=== PATIENT | female | born 1940 | race Caucasian/White ===

== ENCOUNTER 2025-02-26 08:41 | Emergency (ER) | payer MEDICARE, SELFPAY ==
--- OUTSIDE RECORDS SUMMARY | 2025-02-26 08:44 | XMS_ITS | Referral Summary ---
Author Organization [facility] [address] Address [address] [place] [address] Phone Care Team Providers Care Manager Credit Name Role Phone Abdullahi Estes MD Primary Care Provider [phone] Ronnie Bennett MD Unavailable [phone] Steve Beckett MD Unavailable [phone] Maribell Keys DO Unavailable [phone] Demetris Christopher MD Unavailable [phone] David Cox MD Unavailable [phone] Encounters Date Type Department Care Team Description 02/17/2025 Telephone [facility] [address] [place] [address] Abdullahi Estes MD Medication Request 01/27/2025 Telephone [facility] [address] [place] [address] Abdullahi Estes MD Med Refill 12/19/2024 11:30 AM CDT Office Visit [facility] [place] [facility] at [address] [place] [address] Bri Us MD Aortic valve stenosis, etiology of cardiac valve disease unspecified (Primary Dx); S/P TAVR (transcatheter aortic valve replacement) 12/17/[address] [facility] [address] [facility] [address] [place] [address] Abdullahi Estes MD 12/17/2024 1:15 PM CDT Office Visit [facility] [address] [facility] [address] [place] [address] Abdullahi Estes MD Upper respiratory tract infection, unspecified type (Primary Dx); Chronic cough 12/11/2024 Results Follow-Up [facility] [place] [facility] [address] [place] [phone] Bri Us MD Transthoracic Echo (TTE) Complete W Doppler/CF 12/09/2024 3:45 PM CDT Office Visit [facility] [address] [facility] [address] [place] [address] Pao Arias PA Primary osteoarthritis of left shoulder (Primary Dx) 12/06/[address] [facility] [address] [facility] [address] [place] [address] Abdullahi Estes MD Medication question 12/06/2024 11:52 AM CDT - 12/06/2024 11:59 PM CDT Hospital Encounter [facility] [address] [place] [address] Aortic valve stenosis, etiology of cardiac valve disease unspecified Discharge Disposition: Discharge to home or self care from Last 3 Months Allergies Active Allergy Reactions Criticality Noted Date Comments Codeine Nausea & Vomiting Low Other Vomiting Medium 08/30/2022 anesthesia Sulfa (Sulfonamide Antibiotics) Rash Medium Medications coenzyme Q10 200 mg capsule Take 1 capsule (200 mg total) by mouth nightly Active turmeric root extract 500 mg capsule Take 1 capsule by mouth daily Active Bifidobacterium infantis (ALIGN) 4 mg capsule Take 1 capsule (4 mg total) by mouth daily Active calcium citrate/vitamin D3 (CITRACAL REGULAR ORAL) Take 1 tablet by mouth daily Active aspirin 81 mg chewable tabletIndications:kelly nary artery disease Take 1 tablet (81 mg total) by mouth daily 30 tablet 11 2021 Active cyanocobalamin (Vitamin B-12) 1,000 mcg tabletIndications:Prev ention of Vitamin B12 Deficiency Take 1 tablet (1,000 mcg total) by mouth daily Active traMADoL (ULTRAM) 50 mg tabletIndications:Lumb ar radiculopathy Take 1 tablet (50 mg total) by mouth 2 (two) times a day as needed for pain 60 tablet 2023 Active albuterol HFA (Ventolin HFA) 90 mcg/actuation inhalerIndications:Mod erate persistent asthma with acute exacerbation INHALE 2 PUFFS BY MOUTH FOUR TIMES DAILY NEEDED FOR WHEEZING 18 g 1 2023 Active ondansetron (ZOFRAN) 4 mg tabletIndications:Diar tan, unspecified type Take 1 tablet (4 mg total) by mouth 3 (three) times a day as needed for nausea or vomiting (diarrhea) 30 tablet 2024 Active omeprazole (PriLOSEC) 20 mg capsule TAKE 1 CAPSULE BY MOUTH TWICE DAILY 180 capsule 1 2024 Active topiramate (TOPAMAX) 25 mg tablet Take 1 tablet (25 mg total) by mouth every evening Active meclizine (ANTIVERT) 25 mg tablet Take 1 tablet (25 mg total) by mouth 3 (three) times a day as needed for dizziness Active triamterene-hydroCHLOR Othiazide 37.5-25 mg per tablet/capsule Take 1 tablet/capsule by mouth daily 20 tablet 4 11/08 Active pravastatin (PRAVACHOL) 40 mg tabletIndications:Pure hypercholesterolemia TAKE 1 TABLET(40 MG) BY MOUTH DAILY 90 tablet 1 2024 Active azelastine (ASTELIN) 137 mcg (0.1 %) nasal spray Administer 1 spray into each nostril 2 (two) times a day Use in each nostril as directed 30 mL 2024 Active famotidine (PEPCID) 20 mg tabletIndications:Nathen roesophageal reflux disease without esophagitis Take 1 tablet (20 mg total) by mouth nightly 90 tablet 2024 Active butalbital-acetaminoph en-caffeine (ESGIC) 50-325-40 mg per tablet Take 1 tablet by mouth every 4 (four) hours as needed 2024 Active levothyroxine (SYNTHROID) 100 mcg tabletIndications:Acqu ired hypothyroidism TAKE 1 TABLET(100 MCG) BY MOUTH DAILY 90 tablet 1 2024 Active metoprolol tartrate (LOPRESSOR) 25 mg immediate release tabletIndications:Esse ntial hypertension TAKE 1 TABLET(25 MG) BY MOUTH TWICE DAILY 180 tablet 1 2024 Active losartan (COZAAR) 25 mg tabletIndications:Esse ntial hypertension TAKE 1/2 TABLET BY MOUTH EVERY DAY 45 tablet 1 2024 Active gabapentin (NEURONTIN) 600 mg tabletIndications:Noct urnal leg cramps,Primary osteoarthritis of right hand,Primary osteoarthritis of left hip,Primary osteoarthritis of left hand Take 1 tablet (600 mg total) by mouth nightly 90 tablet 2024 Active amoxicillin (AMOXIL) 500 mg tablet/capsuleIndicati ons:Need for antibiotic prophylaxis for dental procedure Take 4 capsules by mouth approximately 1 hour prior to dental appointment. 4 tablet/ca psule 2024 Active Breo Ellipta 200-25 mcg/dose diskus inhalerIndications:Mod erate persistent asthma with acute exacerbation USE 1 INHALATION BY MOUTH DAILY. RINSE MOUTH WITH WATER AFTER USE. DO NOT SWALLOW 180 each 1 2024 Active Breo Ellipta 200-25 mcg/dose diskus inhalerIndications:Mod erate persistent asthma with acute exacerbation Inhale 1 puff every day Rinse mouth with water after use. Do not swallow. 3 each 1 02/24 Discontinued gabapentin (NEURONTIN) 600 mg tablet Take 1 tablet (600 mg total) by mouth nightly 30 tablet 2 02/03 Discontinued( Reorder) Active Problems Problem Noted Date Diagnosed Date Chronic cough 12/17/2024 Assessment & Plan (12/17/2024 6:59 PM CDT): CXR IN SEP NEG POST NASAL DRIP / ASTELIN NASAL SPRAY BID LPR OMERPAIOZLE 20 MG PO BID ADD PEPCID HS COUGH: TGESSALON PLERES 200 MG PO TIDF FOR 7 DAYS Dependent edema 11/08/2024 Assessment & Plan (11/08/2024 5:01 PM CDT): LEG ELEVATION LOW NA DIET MAXZIDE PRN SUPPORT STOCKINGS Dehydration 10/07/2024 Assessment & Plan (10/07/2024 1:34 PM TRUCK SWITCHER): Will arrange 0.9 percent NS 1 L over one hours Labs : cbc/cmp / cxr today after the IVF Fatigue 10/07/2024 Influenza A 09/20/2024 Bronchitis 09/15/2024 Pneumonia 09/15/2024 Weakness 09/15/2024 Influenza A 09/14/2024 Assessment & Plan (09/20/2024 11:16 AM TRUCK SWITCHER): PT IS FEELING BETTER SHE DID GET FLU SHOT THERE WAS MILD RUL PNEUMONIA SHE IS FINISHED WITH THE ABX NOW AND THE ONLY THING LEFT IS COUGH Boil of inguinal region 08/30/2024 Assessment & Plan (08/30/2024 12:22 PM TRUCK SWITCHER): KEEP AREA CLEAN AND DRY MOIST WARM COMPRESSES TID START KEFLEX 500 MG PO QID FOR 7 DAYS TOPICAL BACTROBAN AND REFERRRAL TO [facility] OR [facility] DELIVERY DRIVER FOR POSSIBLE I AND D Subacute cough 04/18/2024 Assessment & Plan (04/18/2024 2:19 PM CDT): COULD BE DUE TO COVID RESOLVED USE ALBUTEROL PUS LUISAPatricio GINLEON WAS CALLED IN TODAY FOR HER GAMAL (generalized anxiety disorder) 04/18/2024 Assessment & Plan (04/18/2024 2:20 PM CDT): CHRONIC AND STABLE DISCUSSED USING BUSPAR NECESSARY UTI (urinary tract infection) due to Enterococcu s 04/02/2024 Assessment & Plan (04/18/2024 2:18 PM CDT): PT IS DONE WITH HER ABX WILL RECHECK UA C/S TODAY FINISHED AUGMENTIN COVID-19 04/01/2024 Sacroiliitis 10/26/2023 Lumbar radiculopathy 10/26/2023 DDD (degenerative disc disease), lumbar 10/26/19 24 Nausea and vomiting 10/25/2023 Assessment & Plan (10/25/2023 8:44 AM TRUCK SWITCHER): Chronic n/v with worsening over the last month or so, becoming more frequent Has acid and some food particle regurgitation at night time as well Takes omeprazole 20 mg twice daily for years not sure if helping Take zofran as needed with some relief No weight loss, changes in bowel habits, hematochezia or melena, takes miralax as needed Takes ibuprofen on a regular basis, does not feel like tylenol helps with arthritis or migraines No known family history of colon cancer, liver disease, inflammatory bowel disease, or other GI pathologies No smoking, ETOH or illicit drug use Labs from 08/2023 showed mildly elevated creatinine 1.11, normal lipid panel, TSH,, CBC Normal KUB 03/2021 CT chest abdomen pelvis with contrast from 2014 showed moderate hiatal hernia and postsurgical changes of cholecystectomy Colonoscopy from 02/2013 showed sigmoid diverticulosis and hemorrhoids Remote EGD Plan Could be symptom of worsening acid reflux/esophagitis in the setting of hiatal hernia, PUD/gastritis with regular NSAID use, partial gastric outlet obstruction, gastroparesis, etc. Given age and worsening symptoms will also need to rule out malignancy, Will plan for EGD Continue Omeprazole 20 mg, take 30 minutes before breakfast and dinner Start over the counter Pepcid 20 mg 30 minutes before bedtime Follow antireflux lifestyle modification Encounter for Medicare annual wellness exam 09/29 Assessment & Plan (03/20/2024 1:27 PM CDT): IMMUNIZATIONS WERE REVIEWED EYE EXAM IS UPTODATE ON TRAMADOL FOR CHORNIC NECK AND BACK PAIN NO SIGNS OF OPIOID DEPENDENCE F/U PM MIXED HYPERLIPIMDEIA : GOAL LDL IS UNDER 100 FALL PREVENTION REVIEWED TODAY ACQUIRED HYPOTHYORIDISM : NL TSH Assessment & Plan (10/25/2023 8:46 AM TRUCK SWITCHER): Colonoscopy from 02/2013 showed sigmoid diverticulosis and hemorrhoids. No family hx of colon cancer and no weight loss or concerning lower GI symptoms. Given her age will defer further screening at this time. Esophageal dysmotility 10/24/2023 Left shoulder pain 06/14/2023 Cervical radiculopathy 11/17/2022 Cervicalgia 11/17/2022 Degenerative disc disease, cervical 11/16/2022 rn long term care current use of anticoagulant 3 S/P TAVR (transcatheter aortic valve replacement ) 06/22/2022 Aortic valve stenosis 05/10/2022 Overview (05/10/2022): Added automatically from request for surgery [id number] Nocturnal leg cramps 03/09/2022 Assessment & Plan (03/09/2022 2:53 AM CDT): Patient states menthol cream works well for her, will order. Carpal tunnel syndrome on left 12/16/2021 Overview (12/16/2021): Added automatically from request for surgery [id number] Primary osteoarthritis of right hand 06/02/2020 Arthritis of glenohumeral joint 03/30/2020 Bicipital tendonitis of left shoulder 03/30/2020 Primary osteoarthritis of left hand 03/12/2020 Allergic rhinitis 09/03/2019 Assessment & Plan (09/03/2019 12:04 PM TRUCK SWITCHER): Nasacort 2 sprays into each nostril while looking down over the sink, do not sniff in or blow nose after use. If no improvement, will consider adding Pepcid Primary osteoarthritis of left hip 01/29/2019 Closed bilateral fracture of pubic rami 08/27/20 Assessment & Plan (08/27/2018 3:42 AM TRUCK SWITCHER): Status post fall. Continue with p.r.n. Pain control. Pain is controlled at this time as long as patient is not moved. ED spoke with Dr. Beckett from Ortho who recommended outpatient follow-up with him but in the meantime for pain control, 50% weight-bearing on left leg (affected leg) and 100% weight-bearing on right leg (unaffected leg). PT OT have been ordered. Moderate persistent asthma with acute exacerbati on 08/27/2018 Assessment & Plan (02/26/2024 10:46 AM CDT): Dry cough for 1-2 weeks, See HPI for details. No acute findings on exam other than clear rhinitis. Lungs clear, sating 98% on RA. Likely viral VS rhinitis. Continue Breo as rxd, use albuterol more frequently. Continue Tesslaon as needed. Benadryl/Zyrtec/charles can be used to dry up a runny nose or post nasal drip. Flonase or Nasacort will also help with sinus pressure and nasal drip both. Tylenol/Ibuprofen as needed for pain. Increase fluids (water) Cool mist humidifier at night Use sinus rinses to help flush bacteria and help with congestion. Encouraged honey, marshmallows, gelatin, or chloraseptic to help coat throat. Call with any worsening or persistent symptoms. Assessment & Plan (03/09/2022 2:52 AM CDT): Continue breathing treatments Assessment & Plan (08/27/2018 3:40 AM TRUCK SWITCHER): Patient takes Breo. will bring in Breo tomorrow. Essential hypertension 05/22/2018 Assessment & Plan (02/26/2024 10:44 AM CDT): Chronic, at goal. BP stable in office today on current therapy. No acute findings on exam. Labs from october show minimally elevated inspector mechanical at 1.1, otherwise normal. ECHO 07/2023 by cardiology reviewed. Continue losartan and metoprolol as rxd. low salt diet. Assessment & Plan (03/09/2022 2:52 AM CDT): Will allow for permissive hypertension for the 1st 48 hours as recommended by tele stroke. Holding BP meds Assessment & Plan (08/27/2018 3:41 AM TRUCK SWITCHER): Currently normotensive. Home medications have been resumed with hold parameters. Continue to monitor. Acquired hypothyroidism 02/01/2016 Overview (12/02/2016): ACQUIRED HYPOTHYROID NEC Assessment & Plan (03/09/2022 2:52 AM CDT): Continue levothyroxine Assessment & Plan (08/27/2018 3:42 AM TRUCK SWITCHER): Continue levothyroxine Pure hypercholesterolemia 02/01/2016 Overview (12/02/2016): PURE HYPERCHOLESTEROLEM Assessment & Plan (03/09/2022 2:51 AM CDT): Pravachol has been changed to Lipitor Assessment & Plan (08/27/2018 3:41 AM TRUCK SWITCHER): Continue statin. Holding aspirin as patient's hemoglobin appears to have decreased from 13 to 12. Migraine with aura 12/05/2014 Assessment & Plan (06/14/2024 6:56 AM CDT): Chronic and WAXING AND WANING THERE DOES NOT SEEM TO BE ANY TRIGGERING EFFECTS WE DISCUSSED NOT TO USE ANY NSADIS BECAUSE OF HER GI SYMPTOMS BUT INSTEAD DO TYLENOL ARTHRIS FOLLOWED BY TRAMADOL . WILL REFER TO NEUROLOGY CLOSER TO HOME. HER WORK UP SO FAR HAS BEEN NEG INCLUDING MRI OF THE HEAD Assessment & Plan (02/26/2024 10:47 AM CDT): Managed by neurology, no acute findings on exam today, vitals stable. Continue same. Keep follows with Dr. Cox as scheduled. Gastroesophageal reflux disease without esophagi tis 01/11/2014 Overview (12/02/2016): GERD with stricture Assessment & Plan (03/09/2022 2:51 AM CDT): Continue PPI Assessment & Plan (09/03/2019 12:04 PM TRUCK SWITCHER): LPR discussed and Handout provided Assessment & Plan (08/27/2018 3:41 AM TRUCK SWITCHER): Continue PPI b.i.d. Idiopathic osteoporosis 01/11/2014 Overview (12/02/2016): IDIOPATHIC OSTEOPOROSIS Left hip pain Closed traumatic displaced fracture of left pubi s Shortness of breath Immunizations Immunization Administration Dates Next Due Influenza, Quad, Adjuvantate d, Intramuscular 07/06/2023 Influenza, Quadrivalent, Hig h Dose, Preservative Free, Intrr 05/30/2022,05/24/2021 Influenza, Split 06/01/2012 Influenza, Trivalent, High D ose, Split, Preservative Free, Intramuscular 06/03/2024,05/12/2020,06/17/2019,05/22,06/15/2017,06/14/2017,06/02/2016 ,06/10/2015,06/14/2013 Influenza, Trivalent, IM (MDV) 07/08/2014 Pneumococcal Conjugate PCV 13 11/20/2014 RSV Vaccine, Pref, Recombina nt, Subunit, Adjuvanted, PF, IM (Arexvy) 09/19/2023 ZOSTER Recombinant 10/08/2021,06/29/2021 Social History Tobacco Use Types Packs/Day Years Used Date Smoking Tobacco: Never Passive Smoke Exposure: Past Smokeless Tobacco: Never Tobacco Cessation:Counseling Given: Not Answered Alcohol Use Standard Drinks/Week Comments No 0 (1 standard drink = 0.6 oz pur e alcohol) AUDIT-C Answer Date Recorded Q1: How often do you have a drink containing alcohol? Never 11/19/2024 Q2: How many drinks containi ng alcohol do you have on a typical day when you are drinking? Patient does not drink Q3: How often do you have si x or more drinks on one occasion? Never 11/19/2024 PHQ-2 Answer Date Recorded PHQ-2 Total Score (If total score is 3 or more points, staff should administer the PHQ-9) 0 11/08/2024 PHQ-9 Answer Date Recorded PHQ-9 Total Score 3 12/26/2023 Personal Safety Answer Date Recorded Have you ever been in or are you currently in a harmful physical or emotional relationship or is someone making you feel afraid or unsafe? Denies 09/14/2024 Comments No Sex and Gender Information Value Date Recorded Sex Assigned at Not on file Legal Sex Female 12:14 AM TRUCK SWITCHER Gender Identity Not on file Sexual Orientation Not on file Last Filed Vital Signs Vital Sign Reading Time Taken Comments Blood Pressure 129/74 12/19/2024 12:05 PM CDT Pulse 60 12/19/2024 12:05 PM CDT Temperature 36.5 C (97.7 F) 12/17/2024 1:11 PM CDT Respiratory Rate 18 12/17/2024 1:11 PM CDT Oxygen Saturation 99% 12/17/2024 1:11 PM CDT Inhaled Oxygen Concentration - - Weight 60.3 kg (133 lb) 12/19/2024 12:05 PM CDT Height 162.6 cm (5' 4) 12/19/2024 12:05 PM CDT Body Mass Index 22.83 12/19/2024 12:05 PM CDT Plan of Treatment Not on file Medical Devices Implanted Type Area Porter Baggage Device Identifier Shelf Expiration Date Model / Serial / Lot [employer] Angio-Seal Evolution 6fr Vascular Closure [id number] - [id number] Implanted:Qty: 1 on 05[facility]11[facility] [id number] / / [id number] [employer] V[employer] Device Clsr Perclose Prostyle Sut-Mediatd Closure-Repair Sys 37588-65 - [id number] Implanted:Qty: 1 on 06/22/2022 by Js Fuentes MD at [facility] [employer] [id number] / / [employer] Device Clsr Perclose Prostyle Sut-Mediatd Closure-Repair Sys 32653-09 - [id number] Implanted:Qty: 1 on 06/22/2022 by Js Fuentes MD at [facility] Vascular [id number] / / [employer] Valve 23mm Aortic Constantino 3 Commander Baldwin Transcatheter Ultra Low Profile [id number] - [id number] - [id number] Implanted:Qty: 1 on 06/22/2022 by Js Fuentes MD at [facility] [employer] 01/13/2025 [id number] / [id number] / Or[employer]yme Angio-Seal Evolution 6fr Vascular Closure [id number] - [id number] Implanted:Qty: 1 on 06/22/2022 [facility] [id number] / / [id number] Procedures Procedure Name Priority Date/Time Associated Diagnosis Comments POC INFLUENZA A/B, COVID-19 ANTIGEN Routine 12/17/2024 1:17 PM CDT Upper respiratory tract infection, unspecified type CO ARTHROCENTESIS ASPIR&/INJ MAJOR JT/BURSA W/O US Routine 12/09/2024 3:45 PM CDT Primary osteoarthritis of left shoulder TRANSTHORACIC ECHO (TTE) COMPLETE W DOPPLER/CF WO CONTRAST Routine 12/06/2024 1:42 PM CDT Aortic valve stenosis, etiology of cardiac valve disease unspecified DEXA AXIAL SKELETON BONE DENSITY 1 OR MORE SITES Schedule Routine, Read Routine (OP Routine) 10/22/2018 11:23 AM TRUCK SWITCHER Closed bilateral fracture of pubic rami with routine healing, subsequent encounter Idiopathic osteoporosis from Last 3 Months or Most Recently Relevant to Health Maintenance Results * POC Influenza A/B, COVID-19 antigen (12/17/2024 1:17 PM CDT) Influenza A Ag, POC Negative Negative [facility] Influenza B Ag, POC Negative Negative [facility] COVID-19 Ag POC Presumptive Negative Presumptive Negative, Invalid [facility] Nasal 12/17/2024 1:17 PM CDT us Abdullahi Estes MD POINT OF CARE TEST ORDERAB LES Final Result [facility] [address] [place] [id number] * CO ARTHROCENTESIS ASPIR&/INJ MAJOR JT/BURSA W/O US (12/09/2024 3:45 PM CDT) Narrative Pao Arias PA - 12/09/2024 3:45 PM CDT Pao Arias PA 12/09/2024 4:01 PM Large Joint (Hip, Knee, Shoulder) Injection: L glenohumeral Performed by: Pao Arias PA Authorized by: Pao Arias PA Large Joint Injection/Aspiration: Consent Given by: Patient Site marked: the procedure site was marked Timeout: prior to procedure the correct patient, procedure, and site was verified Verbal consent obtained: Yes Supporting Documentation: Indications: Pain Procedure Details: Location: Shoulder Site: L glenohumeral Prep: patient was prepped and draped in usual sterile fashion Prep: patient was prepped using a clean technique Needle Size: 22 G Approach: Posterior Ultrasound guided: No Fluroscopic guidance: No Medications: 3 mL lidocaine 20 mg/mL (2 %); 80 mg methylPREDNISolone acetate 80 mg/mL Patient tolerance: Patient tolerated the procedure well with no immediate complications us Pao [facility]/BEDSIDE DONITA ORTEZ Final Result * TRANSTHORACIC ECHO (TTE) COMPLETE W DOPPLER/CF WO CONTRAST (12/06/2024 1:42 PM CDT) LV EF 65 % CONS SCIMAGE Anatomical Region Laterality Modality Ultrasound 12/06/2024 1:03 PM CDT Narrative 12/06/2024 4:12 PM CDT [address] [address] Echocardiogram Report Patient Name: JANKI BUCK : 1940 Study Date: 12/06/2024 1:03:36 PM Gender: F Tech: AA Location: echon room 2 Ref Provider: BRI US Height(Cm): BSA: Weight(Kg): Quality: Good Order Provider: BRI US PROCEDURES: Echocardiographic Report: Transthoracic echocardiogram with complete 2D, M-Mode, and color Doppler examination. INDICATIONS: TAVR and I35.0 Nonrheumatic aortic (valve) stenosis. MEASUREMENTS: 2D/MM Value Range Doppler Value Range EF Teich 2D 56.1 % [ 54.0 - 74.0 ] CLARITA Vmax 2.19 cm2 Estimated EF 65 % AV Mean PG 9 mmHg LVIDd 2D 4.06 cm [ 3.80 - 5.20 ] AV Peak Basil 1.97 m/s [ 1.00 - 1.70 ] LVIDs 2D 2.89 cm [ 2.20 - 3.50 ] AV VTI 50.03 cm LVPWd 2D 1.25 cm [ 0.60 - 0.90 ] LVOT Diam 2.31 cm IVSd 2D 1.09 cm [ 0.60 - 0.90 ] LVOT Peak Baisl 1.03 m/s [ 0.70 - 1.10 ] LA Dimension MM 3.53 cm [ 2.70 - 3.80 ] LVOT VTI 25.57 cm AoR Diam MM 3.53 cm [ 2.70 - 3.70 ] MV E Peak Basil 1.12 m/s [ 0.60 - 1.30 ] ACS MM 1.71 cm MV A Peak Basil 1.26 m/s [ 1.00 - 1.20 ] MV Mean PG 3 mmHg MV PHT 56 msec [ 20 - 100 ] MVA 3.00 MV Decel Time 195 msec [ 104 - 258 ] PV Peak Basil 0.70 m/s [ 0.40 - 0.80 ] TR Peak Basil 2.79 m/s [ 1.00 - 2.80 ] TR Peak PG 31 mmHg RVSP 36.00 mmHg [ 10.00 - 36.00 ] E` 0.05 m/s E/E` 25.18 [ <= 10.00 ] PA Pressure 5.00 mmHg [ 10.00 - 36.00 ] 2D/MM Value Range Doppler Value Range - FINDINGS: Atrial Septum: Normal atrial septum. Left Ventricle: Normal left ventricular systolic function with no focal wall motion abnormalities. Normal left ventricular size. Mild concentric left ventricular hypertrophy. Impaired diastolic relaxation Grade I. Ejection Fraction is estimated to be 65 %. Left Atrium: The left atrium is normal in size. Right Ventricle: Normal right ventricular size. Normal right ventricular systolic function. Right Atrium: The right atrium is normal in size. Aortic Valve: Peak velocity AOV of 2.1 m/sec. Mean gradient of 10.0 mmHg. Valve area of 2.2 cm2. No aortic regurgitation. Normal appearing aortic valve bioprosthesis. Mitral Valve: Moderate mitral valve regurgitation. Pulmonic Valve: Normal structure of the pulmonic valve. Tricuspid Valve: Mild pulmonary hypertension based on right ventricular systolic pressure. Estimated peak RVSP is 40 mmHg. Mild tricuspid regurgitation. Pericardium: Normal pericardium with no significant pericardial effusion. Aorta: Ascending aorta is mildly dilated. Ascending Aorta 3.9 cm. IVC: Normal size and normal respiratory collapse consistent with normal right atrial pressure (<5 mmHg). Pulmonary Artery: Normal pulmonary artery size. CONCLUSIONS: Normal left ventricular systolic function with no focal wall motion abnormalities. Normal left ventricular size. Mild concentric left ventricular hypertrophy. Impaired diastolic relaxation Grade I. Ejection Fraction is estimated to be 65 %. Moderate mitral valve regurgitation. Normal appearing aortic valve bioprosthesis ( TAVR Baldwin S3 23 mm) .Peak velocity AOV of 2.1 m/sec. Mean gradient of 10.0 mmHg. Valve area of 2.2 cm2. No aortic regurgitation. Mild pulmonary hypertension based on right ventricular systolic pressure. Estimated peak RVSP is 40 mmHg. Mild tricuspid regurgitation. Ascending aorta is mildly dilated. Ascending Aorta 3.9 cm. Electronically Signed By: Js Fuentes MD 12/06/2024 4:11:51 PM CDT Procedure Note Js Fuentes MD - 12/06/[address] [place] [address] Echocardiogram Report Patient Name: JANKI BUCK : 1940 Study Date: 12/06/2024 1:03:36 PM Gender: F Tech: AA Location: [facility] room 2 Ref Provider: BRI US Height(Cm): BSA: Weight(Kg): Quality: Good Order Provider: BRI US PROCEDURES: Echocardiographic Report: Transthoracic echocardiogram with complete 2D, M-Mode, and color Dopplerexamination. INDICATIONS: TAVR and I35.0 Nonrheumatic aortic (valve) stenosis. MEASUREMENTS: 2D/MM Value Range Doppler ValueRange EF Teich 2D 56.1 % [ 54.0 - 74.0 ] CLARITA Vmax 2.19cm2 Estimated EF 65 % AV Mean PG 9 mmHg LVIDd 2D 4.06 cm [ 3.80 - 5.20 ] AV Peak Basil 1.97 m/s[ 1.00 - 1.70 ] LVIDs 2D 2.89 cm [ 2.20 - 3.50 ] AV VTI 50.03cm LVPWd 2D 1.25 cm [ 0.60 - 0.90 ] LVOT Diam 2.31cm IVSd 2D 1.09 cm [ 0.60 - 0.90 ] LVOT Peak Basil 1.03 m/s[ 0.70 - 1.10 ] LA Dimension MM 3.53 cm [ 2.70 - 3.80 ] LVOT VTI 25.57cm AoR Diam MM 3.53 cm [ 2.70 - 3.70 ] MV E Peak Basil 1.12 m/s[ 0.60 - 1.30 ] ACS MM 1.71 cm MV A Peak Basil 1.26 m/s[ 1.00 - 1.20 ] MV Mean PG 3 mmHg MV PHT 56 msec [ 20 - 100 ] MVA 3.00 MV Decel Time 195 msec [ 104 - 258 ] PV Peak Basil 0.70 m/s [ 0.40 - 0.80 ] TR Peak Basil 2.79 m/s [ 1.00 - 2.80 ] TR Peak PG 31 mmHg RVSP 36.00 mmHg [ 10.00 - 36.00 ] E` 0.05 m/s E/E` 25.18 [ <= 10.00 ] PA Pressure 5.00 mmHg [ 10.00 - 36.00 ] 2D/MM Value Range Doppler ValueRange - FINDINGS: Atrial Septum: Normal atrial septum. Left Ventricle: Normal left ventricular systolic function with no focal wall motionabnormalities. Normal left ventricular size. Mild concentric left ventricular hypertrophy.Impaired diastolic relaxation Grade I. Ejection Fraction is estimated to be 65 %. Left Atrium: The left atrium is normal in size. Right Ventricle: Normal right ventricular size. Normal right ventricular systolicfunction. Right Atrium: The right atrium is normal in size. Aortic Valve: Peak velocity AOV of 2.1 m/sec. Mean gradient of 10.0 mmHg. Valve area of2.2 cm2. No aortic regurgitation. Normal appearing aortic valve bioprosthesis. Mitral Valve: Moderate mitral valve regurgitation. Pulmonic Valve: Normal structure of the pulmonic valve. Tricuspid Valve: Mild pulmonary hypertension based on right ventricular systolic pressure.Estimated peak RVSP is 40 mmHg. Mild tricuspid regurgitation. Pericardium: Normal pericardium with no significant pericardial effusion. Aorta: Ascending aorta is mildly dilated. Ascending Aorta 3.9 cm. IVC: Normal size and normal respiratory collapse consistent with normal rightatrial pressure (<5 mmHg). Pulmonary Artery: Normal pulmonary artery size. CONCLUSIONS: Normal left ventricular systolic function with no focal wall motionabnormalities. Normal left ventricular size. Mild concentric left ventricular hypertrophy.Impaired diastolic relaxation Grade I. Ejection Fraction is estimated to be 65 %. Moderate mitral valve regurgitation. Normal appearing aortic valve bioprosthesis ( TAVR Baldwin S3 23 mm) .Peakvelocity AOV of 2.1 m/sec. Mean gradient of 10.0 mmHg. Valve area of 2.2 cm2. No aorticregurgitation. Mild pulmonary hypertension based on right ventricular systolic pressure.Estimated peak RVSP is 40 mmHg. Mild tricuspid regurgitation. Ascending aorta is mildly dilated. Ascending Aorta 3.9 cm. Electronically Signed By: Js Fuentes MD 12/06/2024 4:11:51 PM CDT us Bri Us MD CV ECHO PROCEDURES Fin al Result * Dexa Axial Skeleton Bone Density 1 or 2 Site (10/22/2018 11:23 AM TRUCK SWITCHER) Anatomical Region Laterality Modality Body N/A Other 10/22/2018 11:4 6 AM TRUCK SWITCHER Impressions 10/22/2018 11:46 AM TRUCK SWITCHER 1. NORMAL BONE MINERAL DENSITY OF THE LUMBAR SPINE. 2. OSTEOPENIA OF THE LEFT HIP. COMMENT: W.H.O. defines the T-score of between -1 and -2.5 as osteopenia, the level at which there may be an increased risk of developing osteoporosis and fractures in the future. Osteoporosis is defined as T-score lower than -2.5 (significantly increased risk of fracture due to osteoporosis). T-score is a comparison to peak bone mineral density of young adult reference population. Z-score is a comparison to bone mineral density of sex and age group population. Electronically signed by: Maximilian Mccall M.D. Narrative 10/22/2018 11:46 AM TRUCK SWITCHER EXAM: DEXA Bone Density Axial HISTORY: Other specified fracture of right pubis, subsequent encounter for fracture with routine healing 78-year-old postmenopausal female who states a history of calcium therapy. FINDINGS: LUMBAR SPINE: Mean bone mineral content is 1.245 g/cm2. The T-score is 1.8. LEFT HIP: Mean bone mineral content is 0.656 g/cm2. The neck T-score is -1.7. The total T-score is -0.8. Procedure Note Maximilian Mccall MD - 10/22/2018 EXAM: DEXA Bone Density Axial HISTORY: Other specified fracture of right pubis, subsequent encounter for fracture with routine healing 78-year-old postmenopausal female who states a history of calcium therapy. FINDINGS: LUMBAR SPINE: Mean bone mineral content is 1.245 g/cm2. The T-score is 1.8. LEFT HIP: Mean bone mineral content is 0.656 g/cm2. The neck T-score is -1.7. The total T-score is -0.8. IMPRESSION: 1. NORMAL BONE MINERAL DENSITY OF THE LUMBAR SPINE. 2. OSTEOPENIA OF THE LEFT HIP. COMMENT: W.H.O. defines the T-score of between -1 and -2.5 as osteopenia, the level at which there may be an increased risk of developing osteoporosis and fractures in the future. Osteoporosis is defined as T-score lower than -2.5 (significantly increased risk of fracture due to osteoporosis). T-score is a comparison to peak bone mineral density of young adult reference population. Z-score is a comparison to bone mineral density of sex and age group population. Electronically signed by: Maximilian Mccall M.D. 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 ADVANCE DIRECTIVE 04/03/2024 8:53 AM Power of Mobile Service Rv Technician-Medical * Full Code (Latest Code Status on File) Date Activated Date Inactivated Comments 09/14/2024 10:17 PM 09/16/2024 3:27 PM * Full Code Date Activated Date Inactivated Comments 04/02/2024 10:48 AM 04/03/2024 6:26 PM * Full Code Date Activated Date Inactivated Comments 01/01/2024 2:07 PM 01/01/2024 9:10 PM * Full Code Date Activated Date Inactivated Comments 01/01/2024 2:07 PM 01/01/2024 2:07 PM * Full Code Date Activated Date Inactivated Comments 05/11/2022 3:39 PM 05/11/2022 9:26 PM Care Teams Manager Credit Relationship Specialty Start Date End Date Abdullahi Estes MD [address] [place] [address] PCP - General 11/25/16 Ronnie Bennett MD [address] ON LICENSE OF [facility] [place] [address] Referring Physician Allergy and Immunology 05/22/18 Steve Beckett MD [address] [place] [address] Surgeon Orthopedic Surgery 11/21/18 Maribell Keys DO [address] [place] [address] Consulting Physician Otolaryngology 09/26/19 Demetris Christopher MD [address] [facility] [place] [address] Consulting Physician Hand Surgery 10/16/20 David Cox MD [address] [place] [id number] Referring Physician Neurology 02/26/24
--- OUTSIDE RECORDS SUMMARY | 2025-02-26 08:45 | XMS_ITS | Patient Health Record ---
Author Organization [employer] Address [address] [facility] [address] [place] [address] Care Team Providers Care Carcass Trimmer Name Role Phone Meera BENSON, Abdullahi Primary Care Provider Unavailab le Reason For Referral No Information Medications Medication SIG (Take, Route, Frequency, Duration) Notes Start Date End Date Status Micronized Colestipol HCl 1 GM TAKE 1 TABLET BY MOUTH TWICE DAILY for 30 Active Cholestyramine 4 GM/DOSE 1 Orally Twice a day for 30 day(s) 06/21/2016 Active Plan Of Treatment No Information Insurance Providers Payer Name Payer Address Payer Phone Subscriber Number Group Number Insured Name Patient Relationship to Insured Coverage Start Date Coverage End Date Medicare E2 [address] [address] [place] [address] [id number] Janki Fierro Self - patient is the insured 3 [employer] [address] [address] [place] [phone] [id number] PLAN N Janki Fierro Self - patient is the insured 4
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
--- OUTSIDE RECORDS SUMMARY | 2025-02-26 08:45 | XMS_ITS | Clinical Summary ---
Author Organization [facility] [address] Address [address] [place] [address] Phone Care Team Providers Care Duct Layer Name Role Phone Abdullahi Estes MD Primary Care Provider [phone] Ronnie Bennett MD Unavailable [phone] Steve Beckett MD Unavailable Maribell Keys DO Unavailable Demetris Christopher MD Unavailable [phone] David Cox MD Unavailable [phone] Allergies Active Allergy Reactions Criticality Noted Date [...] Plan (12/17/2024 6:59 PM CDT): CXR IN FEB NEG POST NASAL DRIP / ASTELIN NASAL SPRAY BID LPR OMERPAIOZLE 20 MG PO BID ADD PEPCID HS COUGH: TGESSALON PLERES 200 MG PO TIDF FOR 7 DAYS Dependent edema 11/08/2024 Assessment & Plan (11/08/2024 5:01 PM CDT): LEG ELEVATION LOW NA DIET MAXZIDE PRN SUPPORT STOCKINGS Dehydration 10/07/2024 Assessment & Plan (10/07/2024 1:34 PM COSMETOLOGY EDUCATOR): Will arrange 0.9 percent NS 1 L over one hours Labs : cbc/cmp / cxr today after the IVF Fatigue 10/07/2024 Influenza A 09/20/2024 Bronchitis 09/15/2024 Pneumonia 09/15/2024 Weakness 09/15/2024 Influenza A 09/14/2024 Assessment & Plan (09/20/2024 11:16 AM COSMETOLOGY EDUCATOR): PT IS FEELING BETTER SHE DID GET FLU SHOT THERE WAS MILD RUL PNEUMONIA SHE IS FINISHED WITH THE ABX NOW AND THE ONLY THING LEFT IS COUGH Boil of inguinal region 08/30/2024 Assessment & Plan (08/30/2024 12:22 PM COSMETOLOGY EDUCATOR): KEEP AREA CLEAN AND DRY MOIST WARM COMPRESSES TID START KEFLEX 500 MG PO QID FOR 7 DAYS TOPICAL BACTROBAN AND 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 No family hx of colon cancer and no weight loss or concerning lower GI symptoms. Given her age will defer further screening at this time. 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 Carpal tunnel syndrome on left 12/16/2021 Overview (12/16/2021): Added automatically from request for surgery [id number] Primary osteoarthritis of right hand 06/02/2020 Arthritis of glenohumeral joint 03/30/2020 Bicipital tendonitis of left shoulder 03/30/2020 Primary osteoarthritis of left hand 03/12/2020 Allergic rhinitis 09/03/2019 Assessment & Plan (09/03/2019 12:04 PM COSMETOLOGY EDUCATOR): Nasacort 2 sprays into each nostril while looking down over the sink, do not sniff in or blow nose after use. If no improvement, will consider adding Pepcid Primary osteoarthritis of left hip 01/29/2019 Closed bilateral fracture of pubic rami 08/27/20 18 Assessment & Plan (08/27/2018 3:42 AM COSMETOLOGY EDUCATOR): Status post fall. Continue with p.r.n. Pain [...] treatments Assessment & Plan (08/27/2018 3:40 AM COSMETOLOGY EDUCATOR): Patient takes Breo. will bring in Breo tomorrow. Essential hypertension 05/22/2018 Assessment & Plan (02/26/2024 10:44 AM CDT): Chronic, at goal. BP stable in office today on current therapy. No acute findings on exam. 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 ECHO 07/2023 by cardiology reviewed. Continue losartan and metoprolol as rxd. low salt diet. Assessment & Plan (03/09/2022 2:52 AM CDT): Will allow for permissive hypertension for the 1st 48 hours as recommended by tele stroke. Holding BP meds Assessment & Plan (08/27/2018 3:41 AM COSMETOLOGY EDUCATOR): Currently normotensive. Home medications have been resumed with hold parameters. Continue to monitor. Acquired hypothyroidism 02/01/2016 Overview (12/02/2016): ACQUIRED HYPOTHYROID NEC Assessment & Plan (03/09/2022 2:52 AM CDT): Continue levothyroxine Assessment & Plan (08/27/2018 3:42 AM COSMETOLOGY EDUCATOR): Continue levothyroxine Pure hypercholesterolemia 02/01/2016 Overview (12/02/2016): PURE HYPERCHOLESTEROLEM Assessment & Plan (03/09/2022 2:51 AM CDT): Pravachol has been changed to Lipitor Assessment & Plan (08/27/2018 3:41 AM COSMETOLOGY EDUCATOR): Continue statin. Holding aspirin as patient's hemoglobin [...] PPI Assessment & Plan (09/03/2019 12:04 PM COSMETOLOGY EDUCATOR): LPR discussed and Handout provided Assessment & Plan (08/27/2018 3:41 AM COSMETOLOGY EDUCATOR): Continue PPI b.i.d. Idiopathic osteoporosis 01/11/2014 Overview (12/02/2016): IDIOPATHIC OSTEOPOROSIS Left hip pain Closed traumatic displaced fracture of left pubi s Shortness of breath Encounters Date Type Department Care Team Description 02/17/2025 [facility]phone [facility] [address] [facility] [address] [place] [address] Abdullahi Estes MD Medication Request 01/27/2025 Telephone [facility] [address] [facility] [address] [place] [address] Abdullahi Estes MD Med Refill 12/19/2024 11:30 AM CDT Office Visit [facility] [address] [facility] [address] [place] [phone] Bri Us MD Aortic valve stenosis, etiology of cardiac valve disease unspecified (Primary Dx); S/P TAVR (transcatheter aortic valve replacement) 12/17/2024 1:15 PM CDT Office Visit [facility] [address] [facility] [address] [place] [address] Abdullahi Estes MD Upper respiratory tract infection, unspecified type (Primary Dx); Chronic cough 12/17/2024 Telephone [facility] [address] [facility] [address] [place] [address] Abdullahi Estes MD 12/11/2024 Results Follow-Up [facility] [address] [place] [phone] Bri Us MD Transthoracic Echo (TTE) Complete W Doppler/CF 12/09/2024 3:45 PM CDT Office Visit [facility] [address] [facility] [address] [place] [address] Pao Arias PA Primary osteoarthritis of left shoulder (Primary Dx) 12/06/2024 11:52 AM CDT - 12/06/2024 11:59 PM CDT Hospital Encounter [facility] [address] [place] [address] Aortic valve stenosis, etiology of cardiac valve disease unspecified Discharge Disposition: Discharge to home or self care 12/06/2024 Telephone [facility] [address] [place] [address] Abdullahi Estes MD Medication question from Last 3 Months Immunizations Immunization Administration Dates Next Due Influenza, Quad, Adjuvantate d, Intramuscular 07/06/2023 Influenza, Quadrivalent, Hig h Dose, Preservative Free, Intrr 05/30/2022,05/24/2021 Influenza, Split 06/01/2012 Influenza, Trivalent, High D ose, Split, Preservative Free, Intramuscular 06/03/2024,05/12/2020,06/17/2019,05/22,06/15/2017,06/14/2017,06/02/2016 ,06/10/2015,06/14/2013 Influenza, Trivalent, IM (MDV) 07/08/2014 Pneumococcal Conjugate PCV 13 11/20/2014 RSV Vaccine, Pref, Recombina nt, Subunit, Adjuvanted, PF, IM (Arexvy) 09/19/2023 ZOSTER Recombinant 10/08/2021,06/29/2021 Surgical History Surgery Date Site/Laterality Comments CHOLECYSTECTOMY CARPAL TUNNEL RELEASE Bilateral ULNAR NERVE REPAIR Left BREAST CYST ASPIRATION 08/28/2003 - 08/27/2004 Right FL FLUORO GUIDED INJECTION H IP LEFT 02/25/2019 Left HAND SURGERY Bilateral carpal tunnel CATARACT EXTRACTION, BILATERAL CARDIAC VALVE REPLACEMENT FLUORO GUIDED INJECTION HIP RIGHT 10/02/2023 Right Medical History Medical History Date Comments Malignant neoplasm of skin foreh ead Disorder of thyroid Thyroid dise ase GERD (gastroesophageal reflux disease) Neuropathy Aortic aneurysm monitored Asthma Hypertension Motion sickness Vertigo Severe aortic stenosis Hypothyroidism Hyperlipidemia Arthritis Osteoporosis Nausea and vomiting 10/25/2023 PONV (postoperative nausea and vomiting) Family History Medical History Relation Name Comments Heart disease Brother Hypertension Brother No Known Problems Father Thyroid disease Maternal Grandmother No Known Problems Mother Hypertension Other Hypertension; Breast cancer Neg Hx Ovarian cancer Neg Hx Thyroid cancer Neg Hx Relation Name Status Comments Brother Father Maternal Grandmother Mother Other Social History Tobacco Use Types Packs/Day Years [...] on file Legal Sex Female 12:14 AM COSMETOLOGY EDUCATOR Gender Identity Not on file Sexual Orientation Not on file Obstetrics History Para Term AB IAB SAB Ectopic Multiple Livin g Live Births 4 4 4 4 4 Date Outcome GA Total Labor Labor/2nd/3rd Weight Sex Type Anes PTL Barbara A1 A5 Name Clin 3 Term 3.26 kg (7 lb 3 oz) F Vag-Sp ont 6 Term 3.856 kg (8 lb 8 oz) M Vag-Sp ont 9 Term 3.799 kg (8 lb 6 oz) Vag-Sp ont 2 Term 3.487 kg (7 lb 11 oz) F Vag-Sp ont Last Filed Vital Signs Vital Sign Reading [...] 12/19/2024 12:05 PM CDT Plan of Treatment Health Maintenance Due Date Last Done Comments DTaP/Tdap/Td Vaccine (1 - Tdap) 1951 Hepatitis B Screening 1958 Pneumococcal vaccine 65+ (2 of 2 - PPSV23) 01/15/2015 11/20/2014 Osteoporosis Screening-Bone Density Scan 10/22/2020 10/22/2018, 05/03/2016, 05/03/2016 Covid-19 Vaccine (7 - 2023-2 5 season) 2024 07/06/2023, 09/02/2022, 02/09/2022, Additional history exists Well Visit 65+ 03/19/2025 03/19/2024, 09/26/2019 Influenza Vaccine (#1) 2025 , 07/06/2023, 05/30/2022, Additional history exists Fall Risk Assessment 09/16/2025 09/16/2024, 03/19/2024, 03/02/2023, Additional history exists Depression Screening 11/08/2025 11/08/2024, 03/19/2024, 12/26/2023, Additional history exists Zoster Vaccine Completed 10/08/2021, 06/29/2021 Medical Devices Implanted Type Area Fish Peddler Device Identifier Shelf Expiration Date Model / Serial / Lot [employer] Angio-Seal Evolution 6fr Vascular Closure [id number] - [id number] Implanted:Qty: 1 on 05/11/2022 [facility]/20[facility] [id number] / / [id number] [employer] V[employer] Device Clsr Perclose Prostyle Sut-Mediatd Closure-Repair Sys [id number] - [id number] Implanted:Qty: 1 on 06/22/2022 by Js Fuentes MD at [facility] [employer] [id number] / / [employer] Device Clsr Perclose Prostyle Sut-Mediatd Closure-Repair Sys 63160-27 - [id number] Implanted:Qty: 1 on 06/22/2022 by Js Fuentes MD at [facility] [employer] [id number] / / [employer] Valve 23mm Aortic Constantino 3 Commander Baldwin Transcatheter Ultra Low Profile [id number] - [id number] - [id number] Implanted:Qty: 1 on 06/22/2022 by Js Fuentes MD at [facility] [employer] 01/13/2025 [id number] / [id number] / [employer] Angio-Seal Evolution 6fr Vascular Closure [id number] - [id number] Implanted:Qty: 1 on 06/22/2022 by Js Fuentes MD at [facility] [employer] 07/27/2022 [id number] / / [id number] Procedures Procedure Name Priority Date/Time Associated Diagnosis Comments POC INFLUENZA A/B, COVID-19 ANTIGEN Routine 12/17/2024 1:17 PM CDT Upper respiratory tract infection, unspecified type WA ARTHROCENTESIS ASPIR&/INJ MAJOR JT/BURSA W/O US Routine 12/09/2024 3:45 PM CDT Primary osteoarthritis of left shoulder TRANSTHORACIC ECHO (TTE) COMPLETE W DOPPLER/CF WO CONTRAST Routine 12/06/2024 1:42 PM CDT Aortic valve stenosis, etiology of cardiac valve disease unspecified DEXA AXIAL SKELETON BONE DENSITY 1 OR MORE SITES Schedule Routine, Read Routine (OP Routine) 10/22/2018 11:23 AM COSMETOLOGY EDUCATOR Closed bilateral fracture of pubic rami with [...] [facility] Nasal 12/17/2024 1:17 PM CDT Abdullahi Estes MD POINT OF CARE TEST ORDERAB LES Final Result [facility] [address] [place] [address], [facility] * WA ARTHROCENTESIS ASPIR&/INJ MAJOR JT/BURSA W/O US (12/09/2024 [...] PM CDT Narrative 12/06/2024 4:12 PM CDT [address] [place] [address] Echocardiogram Report Patient Name: JANKI BUCK : 1940 Study Date: 12/06/2024 1:03:36 PM Gender: F Tech: LILIANA Location: echon room 2 Ref Provider: BRI [...] - 0.90 ] LVOT Peak Basil 1.03 m/s [ 0.70 - 1.10 ] [...] Procedure Note Js Fuentes MD - 12/06/[address] [place] [address] Echocardiogram Report Patient Name: JANKI BUCK : 1940 Study Date: 12/06/2024 1:03:36 PM Gender: F Tech: AA [place] [facility] Provider: BRI US Height(Cm): BSA: Weight(Kg): Quality: [...] 1 or 2 Site (10/22/2018 11:23 AM COSMETOLOGY EDUCATOR) Anatomical Region Laterality Modality Body N/A Other 10/22/2018 11:4 6 AM COSMETOLOGY EDUCATOR Impressions 10/22/2018 11:46 AM COSMETOLOGY EDUCATOR 1. NORMAL BONE MINERAL DENSITY OF THE [...] Maximilian Mccall M.D. 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 ADVANCE DIRECTIVE 04/03/2024 8:53 AM Power of Strategy Specialist-Medical * Full Code (Latest Code Status on [...] 3:39 PM 05/11/2022 9:26 PM Care Teams Duct Layer Relationship Specialty Start Date End Date Abdullahi Estes MD [address] [place] [address] PCP - General 11/25/16 Ronnie Bennett MD [address] [place] [address] Referring Physician Allergy and Immunology 05/22/18 Steve Beckett MD [address] [facility] [place] [address] Surgeon Orthopedic Surgery 11/21/18 Maribell Keys DO [address] [facility] [place] [address] Consulting Physician Otolaryngology 09/26/19 Demetris Christopher MD [address] [place] [address] Consulting Physician Hand Surgery 10/16/20 David Cox MD [address] [place] [address] Referring Physician Neurology 02/26/24
--- OUTSIDE RECORDS SUMMARY | 2025-02-26 08:45 | XMS_ITS | Clinical Summary ---
Author Organization [facility] Address [address] [facility] [place] [address] Phone Care Team Providers Care Plant Guard Name Role Phone Abdullahi Estes MD Primary Care Provider [phone] Chery Kaur APRN, [employer] Unavailable [phone]- [phone] Allergies Active Allergy Reactions Criticality Noted Date Comments Codeine Nausea Low 06/20/2024 Reaction: Unknown, , Reaction: Unknown, Sulfa Antibiotics Rash Medium 06/20/2024 Reaction: Unknown, , Reaction: Unknown, Medications gabapentin (NEURONTIN) 300 MG Capsule 04/05/20 24 Active levothyroxine (SYNTHROID) 100 MCG Tablet 05/14/20 24 Active metoprolol tartrate (LOPRESSOR) 25 MG Tablet 03/24/20 24 Active omeprazole (PriLOSEC) 20 MG CAPSULE DELAYED RELEASE Take 20 mg by mouth 2 times daily. 04/05/20 24 Active pravastatin (PRAVACHOL) 40 MG Tablet 05/31/20 24 Active Cholecalciferol (VITAMIN D-3 PO) Take by mouth. Active Pyridoxine HCl (B-6 PO) Take by mouth. Active Turmeric (QC TUMERIC COMPLEX PO) Take by mouth. Active aspirin EC 81 MG Tablet Delayed Response Take 81 mg by mouth daily. Active losartan (COZAAR) 25 MG Tablet Take 25 mg by mouth daily. Active Coenzyme Q10 (CO Q 10 PO) Take by mouth. Active ondansetron (Zofran) 4 MG Tablet Take 4 mg by mouth every 8 hours as needed. Active Probiotic Product (ALIGN PO) Take by mouth. Active Cyanocobalamin (B-12 PO) Take by mouth. Active Collagen-Vitami n C-Biotin (Collagen) 500-50-0.8 MG Capsule Take by mouth. Active butalbital-acet aminophen-caffe ine (FIORICET, ESGIC) 50-325-40 MG TabletIndicatio ns:Chronic post-traumatic headache, not intractable Take 1 Tablet by mouth every 4 hours as needed for Headaches or Migraine. 15 Tablet 2 11/21/19 25 Active Atogepant (Qulipta) 30 MG TabletIndicatio ns:Migraine Take 1 Tablet by mouth nightly. Indications: Migraine Headache 30 Tablet 2 02/19/20 25 Active meclizine (ANTIVERT) 12.5 MG TabletIndicatio ns:Vertigo Take 1 Tablet by mouth every 8 hours as needed for Dizziness or Nausea. 15 Tablet 2 02/19/20 25 Active venlafaxine (EFFEXOR-XR) 37.5 MG CAPSULE SR 24 HRIndications:M igraine Take 1 Capsule by mouth daily. Indications: Migraine Headache 30 Capsule 2 02/19/20 25 Active traMADol (ULTRAM) 50 MG Tablet Take 50 mg by mouth every 6 hours as needed. 025 Discontinued(Oh d List Clean Up) meclizine (ANTIVERT) 12.5 MG TabletIndicatio ns:Vertigo Take 1 Tablet by mouth every 8 hours as needed for Dizziness or Nausea. 15 Tablet 2 11/21/19 25 025 Discontinued(Re order) topiramate (TOPAMAX) 25 MG TabletIndicatio ns:Chronic post-traumatic headache, not intractable TAKE 1 TABLET BY MOUTH TWICE DAILY FOR MIGRAINE HEADACHE 60 Tablet 2 01/22/20 25 025 Discontinued( erapy completed) venlafaxine (EFFEXOR-XR) 37.5 MG CAPSULE SR 24 HRIndications:M igraine Take 1 Capsule by mouth daily. Indications: Migraine Headache 1 Capsule 2 02/19/20 25 025 Discontinued Active Problems No known active problems Encounters Date Type Department Care Team Description 02/24/2025 Telephone [facility] [address] [place] [address] Chery Kaur APRN, [employer] 02/21/2025 Telephone [facility] [address] [place] [address] Chery Kaur APRN, MO[employer] 02/18/2025 11:30 AM CDT Office Visit [facility] Neurology [facility] [address] [place] [address] Chery Kaur, PETROPHYSICIST, MODEL [employer] Chronic migraine without aura, intractable, without status migrainosus (Primary Dx); Vertigo; Brain fog Discharge Disposition: Discharged to home or Selfcare 02/18/2025 Travel 01/19/2025 [facility] [address] [place] [address] Chery Kaur, PETROPHYSICIST, MODEL [employer] Medication Refill 01/14/2025 Documentation Only [facility] [address] [place] [id number] Henok Arana, PT from Last 3 Months Family History Medical History Relation Name Comments Hypertension Brother No Known Problems Father No Known Problems Mother Relation Name Status Comments Brother Father Mother Social History Tobacco Use Types Packs/Day Years Used Date Smoking Tobacco: Never Smokeless Tobacco: Never Tobacco Cessation:Counseling Given: Not Answered Alcohol Use Standard Drinks/Week Comments Never 0 (1 standard drink = 0.6 oz pur e alcohol) Comments No Sex and Gender Information Value Date Recorded Sex Assigned at Not on file Legal Sex Female 11:24 PM CDT Gender Identity Not on file Sexual Orientation Not on file Last Filed Vital Signs Vital Sign Reading Time Taken Comments Blood Pressure 120/60 02/18/2025 11:22 AM CDT Pulse 62 02/18/2025 11:22 AM CDT Temperature 35.8 C (96.4 F) 02/18/2025 11:22 AM CDT Respiratory Rate 17 02/18/2025 11:22 AM CDT Oxygen Saturation 98% 02/18/2025 11:22 AM CDT Inhaled Oxygen Concentration - - Weight 62.4 kg (137 lb 9.6 oz) 02/18/2025 11:22 AM CDT Height 165.1 cm (5' 5) 02/18/2025 11:22 AM CDT Body Mass Index 22.9 02/18/2025 11:22 AM CDT Plan of Treatment Upcoming Encounters Date Type Department Care Team (Late st Contact Info) Description 04/25/2025 11:00 AM CDT Office Visit [facility] - Neurology - [address] [place] [address] Chery Kaur APRN, MODEL MAKER [employer]ALE [address] [place] [address] Health Maintenance Due Date Last Done Comments Hepatitis C Virus (HCV) Screening 1940 TdaP Immunization 1940 Pneumococcal Immunization (50+ years) (2 of 2 - PPSV23) 11/21/2015 11/20/2014 DEXA Bone Density 10/22/2020 10/22/2018, 05/03/2016 SARS-COV-2 Immunization ( season) 2024 07/06/2023, 09/02/2022, 02/09/2022, Additional history exists Pneumococcal Immunization Combined Discontinued 11/20/2014 Zoster Immunization Completed 10/08/2021, Respiratory Syncytial Virus (RSV) Immunization (Adult) Completed 09/19/2023 Influenza Immunization Completed 4, 07/06/2023, 05/30/2022, Additional history exists Hepatitis B Immunization Aged Out No longer eligible based on patient's age to complete this topic Human Papillomavirus (HPV) Immunization Aged Out No longer eligible based on patient's age to complete this topic Meningococcal Immunization (ACWY) Aged Out No longer eligible based on patient's age to complete this topic Rotavirus Immunization Aged Out No lo nger eligible based on patient's age to complete this topic Procedures Procedure Name Priority Date/Time Associated Diagnosis Comments KULWINDER BONE DENSITOMETRY AXIAL SKELETON Routine 05/03/2016 1:20 PM CDT Asymptomatic menopausal state from Last 3 Months or Most Recently Relevant to Health Maintenance Results * [facility] BONE DENSITOMETRY AXIAL SKELETON (05/03/2016 1:20 PM CDT) Anatomical Region Laterality Modality BODY N/A Other 05/03/2016 1:39 PM CDT Impressions 05/03/2016 1:42 PM CDT IMPRESSION: Low bone mass. The patient's risk for fracture should be based not only on bone mineral density measurements but also clinical risk factors. Additional Clinical Information: Bone mineral density: Normal (T-score above or = -1.0) Low bone mass (T-score between -1.0 and -2.5) replaces the previously used term osteopenia Osteoporosis (T-score = or below -2.5) Medical evaluation for secondary causes of low bone mineral density may be appropriate. FRAX is a World Health Organization validated fracture risk assessment tool that calculates a person's 10 year probability of a major osteoporosis related fracture and hip fracture. According to the National Osteoporosis Foundation guidelines, postmenopausal women and men age 50 or older with low bone mass and a 10 year probability of a major osteoporosis related fracture = or greater than 20% or a 10 year probability of a hip fracture = or greater than 3% should be considered for treatment. For further information, including treatment recommendations, please refer to the 2013 ISCD Official Positions (http://www.iscd.org) and the NOF's Clinician's Guide to Prevention and Treatment of Osteoporosis (http://www.nof.org/professionals/clinical-guidelines) Narrative 05/03/2016 1:42 PM CDT EXAMINATION: DXA Bone Density HISTORY: 76 year old postmenopausal female with given history of asymptomatic postmenopausal state. Current Height: 65 inches Maximum Height: 67 inches Weight: 150 pounds RISK FACTORS: Use of antacids for greater than 6 months, no regular weightbearing exercise, drinks caffeinated beverages Reported use of Fosamax, hormone replacement therapy, multivitamin, vitamin D, and calcium. COMPARISON(S): 04/07/2014, 04/13/2012 [employer] OTHER RANKS/MODEL: [email or web address] (S/N [id number]) FINDINGS: AP lumbar spine L1-L4 Total BMD is 1.479 g/wo0A-krbir is 2.3 Most recent prior BMD was 1.472 g/cm2 There has been a 0.5% increase in BMD which is not statistically significant. Left Hip Current Total BMD is 0.909 g/dx8W-xlack is -0.8 Most recent prior Total BMD was 0.949 g/cm2 There has been a 4.2% decrease in BMD which is statistically significant. Current femoral neck BMD is 0.864 g/hz7W-xtjza is -1.3 Fracture risk assessment (FRAX): 10 year risk for a major osteoporotic fracture is 12.0 % 10 year risk for a hip fracture is 2.5 % The FRAX tool has not been validated in patients currently or previously treated with pharmacotherapy for osteoporosis. In such patients, clinical judgement must be exercised in interpreting FRAX scores as the fracture risk may be overestimated. THIS IS AN ELECTRONICALLY VERIFIED REPORT 05/03/2016 1:39 PM: Tommie Gilbert M.D. Radiologist MD: TOYIN Procedure Note Win Norman MD - 05/03/2016 EXAMINATION: DXA Bone Density HISTORY: 76 year old postmenopausal female with given history of asymptomatic postmenopausal state. Current Height: 65 inches Maximum Height: 67 inches Weight: 150 pounds RISK FACTORS: Use of antacids for greater than 6 months, no regular weightbearing exercise, drinks caffeinated beverages Reported use of Fosamax, hormone replacement therapy, multivitamin, vitamin D, and calcium. COMPARISON(S): 04/07/2014, 04/13/2012 [employer] OTHER RANKS/MODEL: [employer] [place] (S/N [id number]) FINDINGS: AP lumbar spine L1-L4 Total BMD is 1.479 g/ed1C-qffxi is 2.3 Most recent prior BMD was 1.472 g/cm2 There has been a 0.5% increase in BMD which is not statistically significant. Left Hip Current Total BMD is 0.909 g/ko9N-jmfgg is -0.8 Most recent prior Total BMD was 0.949 g/cm2 There has been a 4.2% decrease in BMD which is statistically significant. Current femoral neck BMD is 0.864 g/oa3X-dsbyv is -1.3 Fracture risk assessment (FRAX): 10 year risk for a major osteoporotic fracture is 12.0 % 10 year risk for a hip fracture is 2.5 % The FRAX tool has not been validated in patients currently or previously treated with pharmacotherapy for osteoporosis. In such patients, clinical judgement must be exercised in interpreting FRAX scores as the fracture risk may be overestimated. THIS IS AN ELECTRONICALLY VERIFIED REPORT 05/03/2016 1:39 PM: Win Norman M.D. Win Norman M.D. Radiologist MD: TOYIN IMPRESSION: Low bone mass. The patient's risk for fracture should be based not only on bone mineral density measurements but also clinical risk factors. Additional Clinical Information: Bone mineral density: Normal (T-score above or = -1.0) Low bone mass (T-score between -1.0 and -2.5) replaces the previously used term osteopenia Osteoporosis (T-score = or below -2.5) Medical evaluation for secondary causes of low bone mineral density may be appropriate. FRAX is a World Health Organization validated fracture risk assessment tool that calculates a person's 10 year probability of a major osteoporosis related fracture and hip fracture. According to the National Osteoporosis Foundation guidelines, postmenopausal women and men age 50 or older with low bone mass and a 10 year probability of a major osteoporosis related fracture = or greater than 20% or a 10 year probability of a hip fracture = or greater than 3% should be considered for treatment. For further information, including treatment recommendations, please refer to the 2013 ISCD Official Positions (http://www.iscd.org) and the NOF's Clinician's Guide to Prevention and Treatment of Osteoporosis (http://www.nof.org/professionals/clinical-guidelines) Rachelle Rodriguez MD IMG DEXA ORDERABLES Omayra l Result from Last 3 Months or Most Recently Relevant to Health Maintenance Insurance [facility] Care Teams Plant Guard Relationship Specialty Start Date End Date Abdullahi Estes MD [employer] [id number] PCP - General Internal Medicine 10/01/15 Chery Kaur APRN, MODEL MAKER SCALE [address] [facility] [place] [id number] Nurse Practitioner Advanced Practice Nurse 09/23/24
--- OUTSIDE RECORDS SUMMARY | 2025-02-26 08:45 | XMS_ITS | Patient Health Record ---
Author Organization [employer] [facility] ([address]) Address [address] [place] [address] Care Team Providers Care Emt I/85 Name Role Phone Abdullahi Estes Primary Care Provider Dr. David Bolanos Unavailable [phone] Allergies Allergen (clinical drug ingredient) Drug/Non Drug Allergy documented on EMR Reaction Allergy Type Onset Date Status ANESTHESIA (uncoded) stomach upset Allergy Active Substance with sulfonamide structure and antibacterial mechanism of action (substance) SULFA (uncoded) rash Allergy Active codeine Codeine stomach upset Drug Allergy Act carlin Reason For Referral No Information Medications Medication SIG (Take, Route, Frequency, Duration) Notes Start Date End Date Status Pepcid 20 MG 1 tablet at bedtime as needed Orally Once a day after every meal Active Pravastatin Sodium 40 MG 1 tab(s) orally once a day Active EMGALITY PREFILLED PEN GNLM 120 MG/ML 2 INJECTIONS ON THE FIRST MONTH LOADING DOSE SUBCUTANEOUSLY ONCE; Duration: 28 DAYS *Please review for potential replacement for e-prescription and drug interaction check* 12/23/2023 Not-Taking Levothyroxine Sodium 112 MCG (0.112 MG) 1 CAP(S) ORALLY ONCE A DAY 0115mg *Please review and pick correct strength-formula tion from [employer] options. If intended option is not shown, discontinue and re-order from Quick Search* Active EMGALITY PREFILLED PEN GNLM 120 MG/ML 1 INJECTION MAINTENANCE DOSE SUBCUTANEOUSLY EVERY 4 WEEKS; Duration: 28 DAYS *Please review for potential replacement for e-prescription and drug interaction check* 01/20/2024 Not-Taking CITRACAL REGULAR *Please review for potential replacement for e-prescription and drug interaction check* Active Losartan Potassium 25 MG 1 tab(s) orally once a day Active Turmeric 500 MG 1 cap(s) orally once a day Active Gabapentin 300 MG 1 cap(s) orally 3 times a day Active Ubrelvy 50 MG 1 tab(s) orally twice a day; Duration: 30 days 11/29/2023 Not-Taking Vitamin D3 2000IU *Please review and pick correct strength-formula tion from [employer] options. If intended option is not shown, discontinue and re-order from Quick Search* Active Wuanysbrmz-ZRTM-Jqg feine 50-325-40 MG 1 tab orally Can repeat x 1 after 2-4 hours 02/05/2024 Active B-12 1000 MCG 1 tab(s) orally once a day Active Breo Ellipta 200 MCG-25 MCG/INH 1 PUFF(S) INHALED ONCE A DAY *Please review and pick correct strength-formula tion from [employer] options. If intended option is not shown, discontinue and re-order from Quick Search* Active Aspirin 81 MG 2 tab(s) chewed once a day Active NURTEC ODT 75 MG 1 TAB ORALLY ONCE EVERY OTHER DAY PREVENTIVE; Duration: 30 DAYS *Please review for potential replacement for e-prescription and drug interaction check* 01/25/2024 Not-Taking Co Q 10 200mg *Please review and pick correct strength-formula tion from [employer] options. If intended option is not shown, discontinue and re-order from Quick Search* Active NURTEC ODT 75 MG 1 TAB(S) ORALLY EVERY OTHER DAY *Please review for potential replacement for e-prescription and drug interaction check* Not-Taking Metoprolol Succinate ER 25 MG 1 tab(s) orally once a day Active Vitamin B6 100 MG 1 tab(s) orally once a day Active traMADol HCl 50 MG 1 tab(s) orally every 6 hours As needed Active Align 4 MG 1 cap(s) orally once a day Active Omeprazole 20 MG 1 cap(s) orally once a day Active Ondansetron 4 MG 1 tab(s) orally 2 times a day Active Social History Tobacco Use: Social History Observation Description Date Details (start date - stop date) Never Smoker NA - NA Smoking Smart Form: Question Answer Notes Are you a: never smoker Section Notes: Non-smoker, no EtOH Non-smoker, no EtOH Non-smoker, no EtOH Non-smoker, no EtOH Non-smoker, no EtOH Non-smoker, no EtOH Problems Problem Type SNOMED Code ICD Code Onset Dates Problem Status W/U Status Risk Notes Problem Postconcussion syndrome (71879527) Postconcussional syndrome (F07.81) Active confirmed Problem Chronic migraine without aura, non-refractory (disorder) (734768104066017) Migraine without aura, not intractable, without status migrainosus (G43.009) Active confirmed Problem Migraine with aura (3581539) Migraine with aura, not intractable, without status migrainosus (G43.109) Active confirmed Problem Chronic migraine without aura, non-intractable (135489130576610) Chronic migraine without aura, not intractable, without status migrainosus (G43.709) Active confirmed Problem Posttraumatic headache (20524808) Post-traumatic headache, unspecified, not intractable (G44.309) Active confirmed Problem Polyneuropathy (46861095) Polyneuropathy, unspecified (G62.9) Active confirmed Problem Cerebrovascular disease (06634067) Cerebrovascular disease, unspecified (I67.9) Active confirmed Problem Abnormal gait (69674719) Unspecified abnormalities of gait and mobility (R26.9) Active confirmed Problem Concussion with no loss of consciousness (disorder) (18957446) Concussion without loss of consciousness, sequela (S06.0X0S) Active confirmed Vital Signs Oximetry 68 % 03/07/2024 Blood pressure diastolic 77 mm Hg 03/07/2024 Height 64 in 03/07/2024 Blood pressure systolic 156 mm Hg 03/07/2024 Weight 142.8 lbs 03/07/2024 BMI 24.51 kg/m2 03/07/2024 Encounters Encounter Location Date Provider Diagnosis [facility] [address] [facility] [address] [place] [address] 03/07/2024 David Cox Migraine with aura, not intractable, without status migrainosus G43.109 ; Post-traumatic headache, unspecified, not intractable G44.309 ; Postconcussional syndrome F07.81 ; Unspecified abnormalities of gait and mobility R26.9 ; Polyneuropathy, unspecified G62.9 and Myalgia, unspecified site M79.[address] [address] 03/12/2024 David Brooke Assessments Encounter Date Diagnosis (ICD Code) Assessment Notes Treatment Notes Treatment Clinical Notes Section Notes 03/07/2024 Migraine with aura, not intractable, without status migrainosus (ICD-10 - G43.109) -Abortive treatment plan: Fioricet (instructions to avoid use > 3 days/week)-Preve ntive treatment plan: Assess effect of nerve blocks today.-Educated the patient on migraine lifestyle recommendations. I recommended the following measures: avoid known triggers of migraine, drink > 100 fluid ounces of non-caffeinated fluid daily, limit caffeine to 2 servings/day, sleep 7-8 hours/night and address any sleep concerns with us and report symptoms of snoring or fatigue; healthy management of stress; avoid treating headaches more than 2 days/week with abortive medication unless approved in treatment plan; can take Riboflavin 400 mg and Magnesium 500 mg daily as supplements; keep scheduled follow-up appointments 03/07/2024 Post-traumatic headache, unspecified, not intractable (ICD-10 - G44.309) Assess effect of nerve blocks today. 03/07/2024 Postconcussional syndrome (ICD-10 - F07.81) Continue Physical Therapy. 03/07/2024 Unspecified abnormalities of gait and mobility (ICD-10 - R26.9) Continue Physical Therapy. 03/07/2024 Polyneuropathy, unspecified (ICD-10 - G62.9) 03/07/2024 Myalgia, unspecified site (ICD-10 - M79.10) Assess effect of nerve blocks today. Plan Of Treatment No Information Insurance Providers Payer Name Payer Address Payer Phone Subscriber Number Group Number Insured Name Patient Relationship to Insured Coverage Start Date Coverage End Date [employer] (Medicare) Attention Claims [address] [place] [address] [id number] Janki Cain Self - patient is the insured [facility] [address] [place] [address] [id number] Janki Cain Self - patient is the insured 4 Medical (General) History Medical History History ICD Code HLD HTN S/p bioprosthetic aortic valve GERD Hypothyroidism AAA OA Lumbar DDD Migraine with aura Cervical DDD Peripheral neuropathy Concussion/post-concussion syndrome Cerebrovascular disease Surgical History Surgery Date(Month/Year) Bioprosthetic aortic valve Right carpal tunnel release Left carpal tunnel release x 2 Left ulnar nerve release CCK
[2025-02-26 08:50] VITALS: BP 138/79; PULSE 87; RESP 24; TEMP 36.3; O2SAT 97
--- OUTSIDE RECORDS SUMMARY | 2025-02-26 08:51 | XMS_ITS | Continuity of Care Document ---
Author Organization [email or web address] [facility] [address] [place] [address] Phone Care Team Providers Care Home Builder Name Role Phone Kevin Roldan MD Unavailable Unavailable Allergies, Adverse Reactions, Alerts Substance Reaction Status Criticality codeine Active No Information Sulfa (Sulfonamide Antibiotics) Active No Information Medications Medication Instructions Dosage Effective Dates (start - stop) Status Comments moxifloxacin 0.5 % eye drops instill 1 drop by ophthalmic route 4 times every day into operative eye for 2 weeks, then stop - Active ketorolac 0.5 % eye drops instill 1 drop in operative eye 4 times every day for 2 weeks, then 2 times per day for 2 weeks, then stop - Active prednisolone acetate 1 % eye drops,suspension instill 1 drop by ophthalmic route 4 times every day into operative eye for 2 weeks, then 2 times per day for 2 weeks, then stop - Active Refresh Optive 0.5 %-0.9 % eye drops instill 1 by ophthalmic route 4 times every day 1 - Active Breo Ellipta 200 mcg-25 mcg/dose powder for inhalation inhale 1 puff by inhalation route every day at the same time each day 1.00 puff - Active meclizine 25 mg tablet take 1 tablet by oral route 3 times every day as needed 25 MG - Active Healthy Heart Complex 100 mg-800 mcg-200 mcg-100 mg tablet 1 tablet by mouth once a day - Active magnesium 200 mg tablet take 2 by oral route every day 2 - Active Fish Oil 1,000 mg (120 mg-180 mg) capsule take 1 capsule by oral route every day 1 capsule - Active Vitamin D3 1,000 unit capsule take 1 by oral route every day 1 - Active biotin 5,000 mcg disintegrating tablet 1 tablet by mouth once a day - Active multivitamin capsule take 1 capsule by oral route every day - Active aspirin 81 mg tablet,delayed release take 1 tablet by oral route every day 81 MG - Active losartan 25 mg tablet take 1 tablet by oral route every day 25 MG - Active Levoxyl 112 mcg tablet take 1 tablet by oral route every day 112 MCG - Active omeprazole 20 mg capsule,delayed release take 1 capsule by oral route every day before a meal 20 MG - Active gabapentin 600 mg tablet take 1 tablet by oral route 3 times every day 600 MG - Active metoprolol succinate ER 25 mg tablet,extended release 24 hr take 1 tablet by oral route every day 25 MG - Active pravastatin 10 mg tablet take 1 tablet by oral route every day 10 MG - Active Procedures Procedure Date Refraction Fundus Photography W/ Report Eye Exam & Treatment No Charge Refraction Post-op Follow-up Visit Post-op Follow-up Visit Remove Cataract, Post Op Care 2 Remove Cataract, Insert Lens,Comanaged S IOLMaster-Professional No Charge Refraction Post-op Follow-up Visit Remove Cataract, Post Op Care 2 Remove Cataract, Insert Lens,Comanaged A IOLMaster-Professional No Charge Optomap Fundus Photos 022 SCODI, Retina No Charge Refraction Office/outpatient Visit, Est No Charge Refraction IOLMaster-Technical No Charge Optomap Fundus Photos 022 No Charge Orbscan SCODI, Retina Office/outpatient Visit, Est No Charge Refraction Fundus Photography W/ Report Eye Exam & Treatment Fundus Photography W/ Report Eye Exam & Treatment Eye Exam & Treatment No Charge Refraction Eye Exam & Treatment No Charge Refraction Eye Exam & Treatment Eye Exam, New Patient Advance Directives Directive Yes / No Effective Date File Name No Information Encounters Encounter Description Practice Location Reason(s) For Visit Diagnoses Date Provider Providers Copied on Encounter [facility], [facility] [address], [place], [place], [address], tel:[phone] SEC Venkata SERRANO Professional 6 month Complete (chief complaint) Presence of intraocular lensEpiretina l membrane (ERM) of left eyeSeasonal allergies 3 Jamar Brown. [address], [facility], [address], [place]. tel:[phone] Referring Provider: Kevin Wang [address] [facility] [address], [place], [address] . tel:[phone] [facility] [address] [facility], [address], [place], [place], [address], tel:[phone] SEC Venkata SERRANO Professional Post-Op (chief complaint) Post op visit Oct-2 2 Jamar Brown. [address], [facility] [place], [address], [place]. tel:[phone] Referring Provider: Kevin Wang [address], [place], [address] . tel:[phone] [facility] Center[facility], [address], [place], [place], [address], [place] tel:[phone] SEC Stella Ferrell No Information May-0 2 Parul OD Brielle. [facility] [address], [address], [place], [place], [address], [place]. tel:[phone] [facility], [address], [place], [place], [address], [place] tel:[phone] SEC Venkata SERRANO Professional 1 wk PC IOL po (chief complaint) Post op visit Oct-0 2 Parul OD Brielle. [address], [place], [place], [address], [place]. tel:[phone] Referring Provider: Kevin Wang, [address] [facility] [address], [place], [address] . tel:[phone] [facility], [address], [place], [place], [address], [place] tel:[phone] SEC Venkata SERRANO Professional Post-Op (chief complaint) Post op visit Apr- 2 Castaneda OD [address] [place], [address], [place]. tel:[phone] Referring Provider: Kevin Wang, [address], [place], [address] . tel:[phone] [facility], [address], [place], [place], [address], [place] tel:[phone] [facility] [place] No Information Apr- 2 Jamar Brown. [address], [address], [place], [place], [address], [place]. tel:[phone] Referring Provider: Kevin Wang, [address], [place], [address] . tel:[phone] [facility], [address], [place], [place], [address], [place] tel:[phone] SEC Venkata SERRANO Professional No Information Apr- 2 Jamar Brown. [address] [facility], [address], [place], [place], [address], [place]. tel:[phone] Referring Provider: Kevin Wang, [address] [facility] [address], [place], [address] . tel:[phone] [facility] Center[facility], [address], [place], [place], [address], [place] tel:[phone] SEC Ingomar Tl [place] No Information Sep-2 2 Jamar Brown. [address] [facility], [address], [place], [place], [address], [place]. tel:[phone] [facility] Center[facility], [address], [place], [place], [address], tel:[phone] SEC Venkata SERRANO Professional post op (chief complaint) Post op visit Sep-1 2 Parul OD Brielle. [address], [address], [place], [place], [address], [place]. tel:[phone] Referring Provider: Kevin Wang, [address] [facility] [address], [place], [address] . tel:[phone] [facility], [address], [place], [place], [address], [place] tel:[phone] SEC Venkata SERRANO Professional 1 day po PCIOL OS (04/27/22) (chief complaint) Post op visit Sep-0 2 Parul OD Brielle. [address], [address], [place], [place], [address], [place]. tel:[phone] Referring Provider: Kevin Wang, [address] [facility] [address], [place], [address] . tel:[phone] [email or web address] [facility], [address], [place], [place], [address], [place] tel: [facility] No Information 2 Jamar Brown. [address] [facility], [address] [place], [address], . tel: Referring Provider: Kevin Wang, [address] [facility] [address], [place], [address] . tel:[phone] [facility], [address] [place] [address] [address], [place], [place], [address], [place] tel: SEC Venkata SERRANO Professional No Information 2 Jamar Brown. [address] [facility], [address] [place], [address], . tel: Referring Provider: Kevin Wang, [address] [facility] [address], [place], [address] . tel:[phone] Office/outpa tient Visit, [facility], [address] [place] [address] [address], [place], [place], [address], [place] tel:[phone] SEC Venkata SERRANO Professional Complete Exam (chief complaint) Epiretinal membrane (ERM) of left eyeAge-relate d nuclear cataract, bilateral 2 Jamar Brown. [address] [facility], [facility], [address], . tel: Referring Provider: Kevin Wang, [address] [facility] [address], [place], [address] . tel:[phone] Office/outpa tient Visit, [facility], [address] [place] [address] [address], [place], [place], [address], [place] tel:[phone] SEC Venkata SERRANO Professional Cataract evaluation (chief complaint) Epiretinal membrane (ERM) of left eyeVitreous degeneration, right eyeCombined forms of age-related cataract, right eyeAge-relate d nuclear cataract, left eyeDry eye syndrome, bilateral 2 Jamar Brown. [address] [facility] [address], [address], [place], [place], [address], . tel:[phone] Referring Provider: Kevin Wang, [address] [facility] [address], [place], [address] . tel:[phone] [facility], [address], [place], [place], [address], [place] tel: SEC [place] Professional Complete Exam (chief complaint) Epiretinal membrane (ERM) of left eyePunctate keratitis, bilateralComb ined forms of age-related cataract, bilateralAge- related nuclear cataract, bilateral 1 Jamar Brown. [address] [facility], [address], [place], [place], [address], . tel:[phone] Referring Provider: Kevin Wang, [address] [facility] [address], [place], [address] . tel:[phone] [facility], [address], [place], [place], [address], [place] tel:[phone] SEC [place] Professional Complete Exam (chief complaint) Age-related nuclear cataract, bilateralVitr eous degeneration, right eyeEpiretinal membrane (ERM) of left eyePunctate keratitis, bilateral 0 Jamar Brown. [address] [facility], [address], [place], [place], [address], [place]. tel:[phone] Referring Provider: Kevin Wang, [address] [facility] [address], [place], [address] . tel:[phone] [facility], [address], [place], [place], [address], [place] tel:[phone] SEC [place] Professional Complete Exam (chief complaint) Epiretinal membrane (ERM) of left eyeAge-relate d nuclear cataract, bilateralVitr eous degeneration, right eye Apr- 9 Jamar Brown. [address], [place], [place], [address], [place]. tel:[phone] Referring Provider: Kevin Wang, [address], [place], [address] . tel:[phone] [facility], [address], [place], [place], [address], [place] tel:[phone] SEC [place] Professional No Information Aug- 9 Jamar Brown. [address], [address], [place], [place], [address], [place]. tel:[phone] [facility], [address], [place], [place], [address], [place] tel:[phone] SEC [place] Professional Complete Exam (chief complaint) Epiretinal membrane (ERM) of left eyeCombined forms of age-related cataract of right eyeDry eye syndrome, bilateral Dec-0 7 Jamar Brown. [address], [address], [address], [place]. tel:[phone] Referring Provider: Kevin Wang, [address], [place], [address] . tel:[phone] [facility], [address], [place], [place], [address], [place] tel:[phone] SEC [place] Professional Complete Exam (chief complaint) Combined forms of age-related cataract of right eyeNuclear sclerosis of left eyeDry eye syndrome, bilateralEpir etinal membrane (ERM) of left eye Sep- 6 Jamar Brown. [address], [place], [place], [address], [place]. tel:[phone] Referring Provider: Kevin Wang, [address] [facility] [address], [place], [address] . tel:[phone] [facility], [address], [place], [place], [address], [place] tel:[phone] SEC [place] Professional No Information 6 Jamar Brown. [address] [facility], [address], [place], [place], [address], [place]. tel:[phone] [facility], [address], [place], [place], [address], tel:[phone] SEC [place] Professional ocular migraines (chief complaint) No Information 5 Neil Crandall. [address], [place], [address], [place]. tel:[phone] Family History Family Member Type Diagnosis Age At Onset No Information Payers Payer name Insurance type Covered republican ID Authoriza tion(s) [place] [id number] [employer] CI [id number] Social History Type Description Quantity Date Captured Comments Alcohol Use Details No Caffeine Use Details Tobacco Use Status Current non-smoker Smoking Status Never smoker Non-Smoking Tobacco Use Details : No Details Available : No Details Available Sex Female Chief Complaint And Reason For Visit From encounter dated '12/16/2022 10:15'. 6 month Complete (chief complaint). Description: The 82 year old patient presents for evaluation of6 month Complete in the right eye and left eye. Patient states eyes have been itching and she is using Systane prn OU. VA seems stable OU. Reason For Referral Reason For Referral No Information Plan Of Treatment Date Type Action Status Patient Education Using a Nasal Steroid [place]: Care Instructions completed Patient Education Cataracts: Care Instruc tions completed Patient Education Cataract Surgery: What to Expect at H~ completed Patient Education Cataracts: Care Instruc tions completed Patient Education Cataracts: Care Instruc tions completed History Of Present Illness Encounter Date Complaint History Of Prese nt Illness 6 month Complete The 82 year old patient presents for evaluation of 6 month Complete in the right eye and left eye. Patient states eyes have been itching and she is using Systane prn OU. VA seems stable OU. Post-Op The 82 year old patient presents for a 3 week post op CE OD. Patient is using Pred and Ketorolac bid OD. Patient states OD is doing good. Patient states vision is good. 1 wk PC IOL po The 82 year old patient presents for evaluation of 1 wk PC IOL po in the right eye. Pt using Vig qid, PF1% qid, and Ketorolac qid. Pt states OD vision is very good. Post-Op The 82 year old patient presents for a 1 day post op CE OD. Patient is using Pred, Ketorolac and Vigamox qid OD. Patient denies any pain or discomfort. Patient states vision OD is good. post op The 82 year old patient presents for a 2 week post op CE OS. Patient is using Pred and Ketorolac bid OS. Patient states OS is doing good. Patient wishes to proceed with CE OD. Patient has a hard time reading small print and is bothered by glare around lights at night. 1 day po PCIOL OS (04/27/22) The 82 year old patient presents for evaluation of 1 day po PCIOL OS (04/27/22). Pt reports good comfort and vision OS. Pt was assigned Prednisolone, Ketorolac, and Vigamox QID OS. Post op instructions reviewed and understood by the pt. Complete Exam The 81 year old patient presents for evaluation of Complete Exam in the right eye and left eye. Hx of PVD OS, ERM OS, and Cataracts OU. Patient states her VA has decreased since she was here last at a distance. Patient has difficulty seeing road signs at night with both eyes. Patient avoids driving at night due to glare with both eyes. Patient states its getting much harder to see small print even wearing her OTC readers. Benson-18-2022 Cataract evaluation The 81 year old female presents for a 6 month cataract check ou. Patient is having a hard time reading small print. Patient is bothered by glare around lights at night. Patient wears OTC reading glasses. Complete Exam The 80 year old female presents for evaluation of Complete Exam in the right eye and left eye. Hx of CAT OU, LANIE OU, PVD OD, ERM OS, and Dermatochalasis OU. Patient uses OTC reading glasses. Patient states she use to wear contacts about 10 years ago. Patient states vision at distance is good. Complete Exam The 79 year old female presents for evaluation of Complete Exam in the right eye and left eye. Hx of LANIE OU, PVD OD, ERM OS, and Cataracts OU. Patient denies any VA changes. Patient states her eyes have been dry and she is using Refresh prn OU. Complete Exam The 78 year old female presents for a complete exam ou monitoring cataracts ou and LANIE ou. Patient c/o she still gets headaches. Patient denies any changes in vision ou. Patient states eyes are doing pretty good. Patient wears OTC reading glasses prn. Complete Exam The 77 year old female presents for Complete Exam in the right eye and left eye. HX Cataract OU, ERM OS, Ocular Migrains OU. Pt states vision is still good, DV is good as well as NV. Pt not currenlty using any gtts, denies any pain or discomfort and has no visual concerns at this time. Complete Exam The 76 year old female presents for Complete Exam. Patient has hx of ocular migraines OU. She states that she used to wear contacts and then 5-6 years ago she did not need them anymore. She says that she does not even wear reading glasses. Patient has no VA complaints OU. ocular migraines The 74 year old female presents for a complete exam. Patient c/o ocular migraines and started taking topamax yesterday. Patient wore monovision contacts until 5 years ago and then didn't need correction. Functional Status Date Functional Assessmen t No Information Instructions Date Instruction Polly pimentel Impression/Plan Impression/Plan Impression/Plan Impression/Plan Impression/Plan Impression/Plan Impression/Plan Impression/Plan Impression/Plan Impression/Plan Impression/Plan Follow up - Return i n 1 year with Kevin Roldan M.D. for Complete Exam. Impression/Plan - Di scussed exam findings with patient. Cataracts not visually significant at this time, will monitor. ERM OS stable, treatment not needed will continue to monitor. Recommend artificial tears QID OU for ocular dryness. Return to clinic in 1 year for complete exam or sooner with problems. Follow up - Return t o clinic in 1 year for complete exam Impression/Plan - Oc ular dryness OU discussed with patient. Explained this can cause intermittent blurred vision and irritation. Recommend patient use AFT as needed. AFT samples given to patient today.Early cataract OU discussed with patient. Patient has no visual complaints. Patient is happy with using OTCR as needed. CE is not recommended at this time. Advised patient to call if she begins to notice a decrease in the vision. Recommend patient return in 1 year or sooner with problems. - Discussed dx with patient. no treatment needed at this time. Return in 1 year for complete exam or sooner with any problems. Related to Ocular migraine - Return in 1 year venecia Panchal M.D. for Complete Exam Related to Ocular migraine Assessments Type Assessment Date assessment Presence of intraocular lens Nov assessment Epiretinal membrane (ERM) of lef t eye assessment Seasonal allergies Patient Care Teams Name Effective Dates (start - stop) Status Members No Information
--- NOTE | 2025-02-26 09:22 | ED_ITS ---
HPI - General Adult General Chief complaint: Nausea/Vomiting/Diarrhea Stated complaint: Lower abdo pain/dizzy Time Seen by Provider: 02/26/25 09:01 Source: patient, family () and RN notes reviewed Mode of arrival: wheelchair Limitations: no limitations History of Present Illness HPI narrative: Patient presents today complaining of a 2 day history of dizziness, lightheadedness, and generalized weakness with decreased appetite and mild left- sided abdominal pain. She also vomited twice this morning. Denies fever, urinary symptoms, numbness or tingling in the extremities, vision changes. states patient has had some mental status changes over the past couple of days and was moaning in pain this morning. History of hypothyroidism, GERD, migraines. Last bowel movement was this morning and was normal. Related Data Home Medications ?Medication ?Instructions ?Recorded ?Confirmed ?Last Taken ?Type aspirin 81 mg tablet 81 mg PO DAILY 02/26/25 02/26/25 Unknown History coenzyme [id number] E 100 mg-100 cap PO 02/26/25 Unknown History unit capsule fluticasone furoate 200 1 inh inhalation Q24H 02/26/25 02/26/25 Unknown History mcg-vilanterol 25 mcg/dose inhalation powder (Breo Ellipta) fluticasone furoate 200 1 inh inhalation Q24H 02/26/25 02/26/25 Unknown History mcg-vilanterol 25 mcg/dose inhalation powder (Breo Ellipta) gabapentin 300 mg capsule mg 02/26/25 Unknown History levothyroxine 100 mcg tablet mcg 02/26/25 Unknown History meclizine 12.5 mg tablet mg 02/26/25 Unknown History metoprolol tartrate 25 mg tablet mg 02/26/25 Unknown History omeprazole 20 mg capsule,delayed mg 02/26/25 Unknown History release topiramate 25 mg tablet mg 02/26/25 Unknown History tramadol 50 mg tablet 50 mg PO Q6-8H PRN pain 02/26/25 02/26/25 02/25/25 History Allergies Allergy/AdvReac Type Severity Reaction Status Date / Time Sulfa (Sulfonamide Allergy Severe RASH Verified 12/19/17 12:49 Antibiotics) codeine AdvReac Severe NAUSEA AND Verified 12/19/17 13:29 VOMITING [facility] Past Medical History Medical History (Updated 02/26/25 @ 09:56 by Gloria Barrera, [employer], ) Migraines GERD (gastroesophageal reflux disease) Hypothyroidism Comments At time of signature, I have reviewed and agree with nursing past medical, surgical, social and family history unless otherwise noted. Please see nursing chart for further information. There is no relevant family history pertinent to the presenting complaint Exam Narrative: GENERAL: Mildly ill-appearing, well-nourished, and in no acute distress. HEAD: Normocephalic, atraumatic. EYES: EOMI. No redness or drainage. Conjunctivae normal. ENT: Mucous membranes pink and moist. Nares clear. No rhinorrhea. NECK: Normal AROM. Supple. No lymphadenopathy. CHEST: No respiratory distress. Clear to auscultation. HEART: Regular rate and rhythm. No murmur appreciated. Normal peripheral pulses. ABDOMEN: Soft, nondistended, normal active bowel sounds.+ mild generalized abdominal tenderness without rebound or guarding EXTREMITIES: Normal range of motion. No edema. SKIN: Warm, dry, no rash. Capillary refill normal. Normal skin turgor. NEURO: No focal deficits. Alert and oriented x3. Gait steady. PSYCH: Normal affect. No signs of depression or anxiety. Course Course Level of Care: Express Care Visit Vital Signs Vital signs: Vital Signs Temperature 97.3 F L 02/26/25 08:50 Pulse Rate 87 02/26/25 08:50 Respiratory Rate 24 H 02/26/25 08:50 Blood Pressure 138/79 02/26/25 08:50 Pulse Oximetry 97 02/26/25 08:50 Oxygen Delivery Room Air 02/26/25 08:50 Temperature 97.3 F L 02/26/25 08:50 Pulse Rate 87 02/26/25 08:50 Respiratory Rate 24 H 02/26/25 08:50 Blood Pressure 138/79 02/26/25 08:50 Pulse Oximetry 97 02/26/25 08:50 Oxygen Delivery Room Air 02/26/25 08:50 Reviewed Transfer Transfered to: [facility] Transportation: Other (Private vehicle) Transfer rationale: Dizziness, lightheadedness, generalized weakness, vomiting Accepting physician: Faisal Medical Decision Making [facility] Narrative Medical decision making narrative: Patient is 84-year-old female brought in by via wheelchair due to dizziness, lightheadedness, vomiting, and generalized weakness. states patient has had some mental status changes for the past couple of days, but here she is A& O x3, able to answer all questions appropriately. Due to diagnostic limitations of [facility], as well as patient's abdominal pain, vomiting, weakness, and dizziness, she is appropriate for ER transfer for further evaluation. Initially, patient and were very strongly against ER transfer because they did not want to wait for extended period of time in the ER, so was in contact with his PCPs office to see if patient could be seen there today. Ultimately, they were told by office this was not possible, and the decision was made for transfer. Report given and they were discharged to their vehicle in stable condition. Differential Diagnosis Differential Diagnosis: Viral syndrome, vertigo, electrolyte imbalance, gastroenteritis, sepsis Vital Signs Vital Signs: Vital Signs Temperature 97.3 F L 02/26/25 08:50 Pulse Rate 87 02/26/25 08:50 Respiratory Rate 24 H 02/26/25 08:50 Blood Pressure 138/79 02/26/25 08:50 Pulse Oximetry 97 02/26/25 08:50 Oxygen Delivery Room Air 02/26/25 08:50 Temperature 97.3 F L 02/26/25 08:50 Pulse Rate 87 02/26/25 08:50 Respiratory Rate 24 H 02/26/25 08:50 Blood Pressure 138/79 02/26/25 08:50 Pulse Oximetry 97 02/26/25 08:50 Oxygen Delivery Room Air 02/26/25 08:50 Critical Care Time Critical Care Time Critical Care Time: No Discharge Plan Discharge Clinical Impression: Generalized muscle weakness, Dizziness Vomiting Qualifiers: Vomiting type: unspecified Nausea presence: unspecified Qualified Code(s): R11.10 - Vomiting, unspecified Patient Disposition: Left Against Medical Advice Condition: Stable Instructions: Weakness (ED) Additional Instructions: You have declined ER transfer today. Please follow up with your PCP as desired. Patient Language: French Prescriptions: No Action topiramate 25 mg tablet meclizine 12.5 mg tablet levothyroxine 100 mcg tablet gabapentin 300 mg capsule omeprazole 20 mg capsule,delayed release(DR/EC) metoprolol tartrate 25 mg tablet fluticasone furoate-vilanterol [Breo Ellipta] 200-25 mcg/dose blister with device 1 inh inhalation Q24H fluticasone furoate-vilanterol [Breo Ellipta] 200-25 mcg/dose blister with device 1 inh inhalation Q24H aspirin 81 mg tablet 81 mg PO DAILY coenzyme [id number] E 100-100 mg-unit capsule PO tramadol 50 mg tablet 50 mg PO Q6-8H PRN (Reason: pain) Follow-up/Referrals: Meera,MD Abdullahi [Primary Care Provider] - Time of Disposition: 09:19
--- NOTE | 2025-02-26 09:29 | PC.NURSE ---
is on phone with primary. He does not want to go to ED unless last resort.
--- NOTE | 2025-02-26 09:30 | PC.NURSE ---
pt is unable to be seen by primary today, will agree to transfer to ED. Provider aware.
== END 2025-02-26 09:44 | disposition left against medical advice (07) ==
PROVIDERS: Emergency Provider Nurse Practitioner; PCP Internal Medicine Infectious Disease
DX: M62.81 Muscle weakness (generalized) (principal); R42 Dizziness and giddiness; R11.10 Vomiting, unspecified; E03.9 Hypothyroidism, unspecified; K21.9 Gastro-esophageal reflux disease without esophagitis; Z79.82 Long term (current) use of aspirin
CPT/HCPCS: 99202; G0463